=== PATIENT | female | born 1975 | race Caucasian/White ===

== ENCOUNTER 2022-04-10 11:23 | Emergency (ER) | payer MEDICAID, OTHER ==
[~2022-04-10] VITALS: Ht 144.8 cm; Wt 59.0 kg
[2022-04-10 11:35] VITALS: BP 110/67
[2022-04-10] MEDS ORDERED: MORPHINE SULFATE 4 MG/ML SYR IVP ONE (13:25)
[2022-04-10] MEDS ORDERED: NACL 0.9% 1,000 ML IV ONE (13:25)
--- NOTE | 2022-04-10 13:40 | NUR ---
lab called for blood draw, no answer at this time
[2022-04-10 15:14] LABS: APPEARANCE,URINE SL CLOUDY (CLEAR); BILIRUBIN,URINE NEGATIVE (NEGATIVE); BLOOD, URINE NEGATIVE (NEGATIVE); COLOR,URINE YELLOW (YELLOW); LEUKOCYTE ESTERASE ,URINE NEGATIVE (NEGATIVE); NITRITE, URINE NEGATIVE (NEGATIVE); UGLUCOSE NEGATIVE (NEGATIVE)
[2022-04-10 15:20] LABS: BASOPHILS % (AUTO) 0.3 % (0.0-2.0); EOSINOPHILS % (AUTO) 0.3 % (0.0-4.0); HEMATOCRIT 39.7 % (36-48); HEMOGLOBIN 13.4 g/dL (12.0-16.0); LYMPHOCYTES # (AUTO) 1.8 K/uL (2.5-16.5); LYMPHOCYTES % (AUTO) 15.3 % (20.5-51.1); MEAN CORPUSCULAR HEMOGLOBIN 30 pg (27-31); MEAN CORPUSCULAR HGB CONC 34 g/dL (33-37); MEAN CORPUSCULAR VOLUME 90.3 fL (80-94); MONOCYTES # (AUTO) 0.7 K/uL (0.8-1.0); MONOCYTES % (AUTO) 5.7 % (1.7-9.3); NEUTROPHILS # (AUTO) 9.2 K/uL (1.8-7.7); NEUTROPHILS % (AUTO) 78.4 % (42.2-75.2); PLATELET COUNT (AUTO) 339 K/uL (140-450); RED CELL DISTRIBUTION WIDTH 13.2 % (11.6-13.7); WHITE BLOOD COUNT (AUTO) 11.7 K/uL (4.8-10.8)
[2022-04-10] MEDS ORDERED: MORPHINE SULFATE 4 MG/ML SYR ONE (15:45)
[2022-04-10 15:58] LABS: ALBUMIN 3.4 g/dL (3.4-5.0); ANION GAP 16.4 (8-16); ASPARTATE AMINOTRANSFERASE 12 U/L (15-37); CARBON DIOXIDE 25.4 mmol/L (21-32); CHLORIDE 101 mmol/L (98-107); CREATININE 0.6 mg/dL (0.6-1.3); GFR ARICAN-AMERICAN 137 mL/min (>90); GLUCOSE 86 mg/dL (74-106); LIPASE 53 U/L (73-393); MAGNESIUM 1.9 mg/dL (1.8-2.4); POTASSIUM 3.8 mmol/L (3.5-5.1); SODIUM SERUM 139 mmol/L (136-145); TOTAL BILIRUBIN 0.4 mg/dL (0.0-1.0); UREA NITROGEN, BLOOD 10 mg/dL (7-18)
--- NOTE | 2022-04-10 17:00 | NUR ---
PT MOVED TO ROOM 7
--- NOTE | 2022-04-10 17:10 | NUR ---
46YO FEMALE PT C/O BURNING 8/10 EPIGASTRIC PAIN AND N/V/D X4DAYS . STATES PAIN AT MOST ON MOVEMENT. NOTES INCREASED FATIGUENESS AND BODY ACHES. DENIES BLOOD IN V/D, CHEST PAIN , SOB , FEVER, CHILLS OR DYSURIA. DENIES TAKING MEDICATION FOR PAIN. ABDOMEN NON DISTENDED OR TENDER TO TOUCH. 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 HX:DENIES NKA
--- NOTE | 2022-04-10 17:19 | NUR ---
PT TAKEN TO CT VIA WHEELCHAIR
--- NOTE | 2022-04-10 17:38 | NUR ---
PT BROUGHT BACK FROM CT
[2022-04-10] MEDS ORDERED: HYDROcodone/APAP 5/325 MG 1 TAB TAB PO ONE (18:50)
--- NOTE | 2022-04-10 19:26 | NUR ---
REPORT GIVEN TO ROSALVA GIBSON. ALL QUESTIONS ANSWERED. TRANSFER OF CARE AT THIS TIME
[2022-04-10] MEDS ORDERED: ACET-8386 PO (19:30)
[2022-04-10] MEDS ORDERED: FAMO-90 PO (19:30)
[2022-04-10] MEDS ORDERED: ONDA-188 SL (19:30)
[2022-04-10 19:52] VITALS: BP 114/73
--- NOTE | 2022-04-10 19:52 | NUR ---
Patient discharged with v/s stable. Written and verbal after care instructions given and explained. Patient alert, oriented and verbalized understanding of instructions. Ambulatory with steady gait. All questions addressed prior to discharge. ID band removed. Patient advised to follow up with PMD. Rx of Pepcid, Zofran, and [place] given. Patient educated on indication of medication including possible reaction and side effects. Opportunity to ask questions provided and answered.
--- NOTE | 2022-04-10 19:53 | NUR ---
The patient's care was reviewed and supervised by Kinga Mullen RN.
== END 2022-04-10 19:52 | disposition home or self-care (01) ==
LOC: MED 11:23
DX: N20.0 Calculus of kidney (principal); N83.202 Unspecified ovarian cyst, left side; Z98.890 Other specified postprocedural states; Z79.899 Other long term (current) drug therapy; Z79.891 Long term (current) use of opiate analgesic; Z91.018 Allergy to other foods
CPT/HCPCS: 36415; 74177; 76705; 80053; 81003; 81025; 83690; 83735; 84484; 85025; 93005; 96361; 96374; 99285; J2270; J7030; Q9967